=== PATIENT | female | born 1960 | race Caucasian/White ===

== ENCOUNTER 2024-03-16 03:52 | Emergency (ER) | payer OTHER ==
[~2024-03-16] VITALS: Ht 172.7 cm; Wt 76.8 kg
[2024-03-16] MEDS ORDERED: AMOX875T3 PO (06:56)
[2024-03-16] MEDS ORDERED: CIPRSUS OT (06:56)
[2024-03-16 07:17] VITALS: BP 136/74; PULSE 76; RESP 16; TEMP 98.9; O2SAT 99
== END 2024-03-16 07:20 | disposition home or self-care (01) ==
LOC: ER 03:52
DX: H66.93 Otitis media, unspecified, bilateral (principal)